=== PATIENT | male | born 1955 | race Caucasian/White ===

== ENCOUNTER → 2024-02-15 22:00 | Outpatient (REF) | payer OTHER, SELFPAY | LOC: DHSLP 22:00 | PROVIDERS: ATTENDING PHYSICIAN Internal Medicine | DX: G47.33 Obstructive sleep apnea (adult) (pediatric) (principal) | CPT/HCPCS: 95806 ==

== ENCOUNTER → 2024-11-27 16:14 | Outpatient (REF) | payer OTHER, SELFPAY | LOC: RAD 16:14 | PROVIDERS: ATTENDING PHYSICIAN Internal Medicine | DX: R05.1 Acute cough (principal) | CPT/HCPCS: 71046 ==

== ENCOUNTER 2025-04-12 14:12 | Inpatient (IN) | payer OTHER, SELFPAY ==
[2025-04-10] VITALS (10 sets, daily range): BP systolic 110–142; BP diastolic 61–91; PULSE 79–85; BMI 29.0
[2025-04-10 15:40] LABS: Hematocrit 44.1 % (39.0-52.0); Hemoglobin 14.9 g/dL (13.0-18.0); Mean Corp Hgb Conc. 33.8 g/dL (33.0-37.0); Mean Corpuscular Volume 88.6 fL (80.0-94.0); Nucleated Red Blood Cells % 0 % (-); Platelet Count 219 10^3/uL (130-400); Red Cell Dist. Width 13.2 % (11.5-14.5)
[2025-04-10 15:54] LABS: ALT (SGPT) 28 U/L (0-50); AST (SGOT) 22 U/L (17-59); Albumin 4.7 g/dl (3.5-5.0); Alkaline Phosphatase 77 U/L (38-126); Blood Urea Nitrogen 14 mg/dl (9-20); Calcium 9.4 mg/dl (8.4-10.2); Carbon Dioxide 23 mmol/L (22-30); Chloride 106 mmol/L (98-107); Glucose 171 mg/dl (70-99); Potassium 3.7 mmol/L (3.5-5.1); Sodium 139 mmol/L (135-145); Total Protein 7.1 g/dl (6.3-8.2); eGFR > 60.00
[2025-04-10 16:05] LABS: Troponin I < 0.012 ng/ml
--- NOTE | 2025-04-10 20:03 | ED.GENMED ---
History of Present Illness
General
Chief Complaint: Fainting/Passed Out
Source: patient and spouse
Exam Limitations: none
Time Seen by Provider: 04/10/25 19:06
Nursing documentation reviewed up to this point in time: agreed with
History of Present Illness
History of Present Illness:
Patient to ED with increasing episodes of lighheadedness and weakness. states he fell on Fathers day, [place] [facility] [place] without any acute findings. Since then he has had increasing episodes of becoming lighthead
and weak while ambulating with his walker and then slumping to his left side. reports multiple falls. He has a history of prior strokes and is weaker on his left side. He has home PT but reports he is now unsafe at home. He was scheduled
for a appointment with his PCP today and he had an episode at the office. PCP sent him to ED for eval. Denies headache, vision changes, CP/pressure, SOB. No fever/chills recent illness. He reports being able to feel the lightheadedness and weakness
occurring. No episodesof syncope.
Past History
Past History
ED Past Medical History: CVA, HTN, NIDDM and Psychiatric
ED Past Surgical History: Orthopedic
Social History
Tobacco: Non-smoker
Alcohol: None
Drug: None
Personal:
Living: with family
Family History
Family History: Other
Review of Systems
Review of Systems
Allergies reviewed?: Yes
All Other Systems: ROS reviewed and negative except as documented in HPI and ROS
Constitutional: Reports fatigue
EENT: Reports no symptoms
Respiratory: Reports no symptoms
Cardiac: Reports no symptoms
ABD/GI: Reports no symptoms
: Reports no symptoms
Musculoskeletal: Reports no symptoms
Skin: Reports no symptoms
Neurological: Reports weakness
Psychiatric: Reports no symptoms
Phy Exam
General Physical Exam
General Presentation: mild distress
General age: appears stated age
General Skin: warm and dry
General Habitus: normal
Cardiovascular Exam
Cardiovascular Exam: regular rate/rhythm and no edema
Pulmonary Exam
Pulmonary Exam: lungs clear and no respiratory distress
Neurological Exam
Neurological Exam: alert and oriented x3
Musculoskeletal Exam
Musculoskeletal Exam: full ROM and neuro vasc intact
Skin Exam
Skin Exam: normal color, warm/dry and no rash
Psychiatric Exam
Psychiatric Exam: normal mood/affect
Course
Orders/Labs/Results
Orders:
Orders
04/10/25 15:15
EKG [Electrocardiogram (*1)] Urgent
Reason for Study: Syncope
04/10/25 15:16
EKG- Treatment ONCE
04/10/25 15:17
Cardiac Monitoring- Treatment ONCE
IV Insert/Care/Rem.- Treatment PRN
O2 Therapy [RESP] Urgent
Titrate/Wean O2 to maintain O2 sat greater than (%): 90
Special Instructions: Maintain sats >/=90%
Pulse Ox/spot Check [RESP] Urgent
Quantity: 1
Special Instructions: ON ROOM AIR
04/10/25 15:25
CT Head W/o Iv Contrast Urgent
Comment:
Reason For Exam: multiple syncopal episodes/thinners
04/10/25 15:30
Complete Blood Count/With Diff Urgent
Comprehensive Metabolic Panel Urgent
Troponin I Urgent
04/10/25 20:02
Orthostatic VS- Treatment ONCE
04/10/25 22:05
Urinalysis Reflex To Culture Urgent
Date Specimen was Collected: 04/10/25
Time Specimen was Collected: 22:04
Abnormal Lab Results
04/10/25 04/10/25
15:30 22:05
Absolute Monos (auto) 0.7 H 10^3/uL
(0.1-0.6)
Eosinophils % 6.1 H %
(0-6)
Glucose 171 H mg/dl
(70-99)
Urine Glucose 4+ A
(Negative)
04/10/25 15:30
04/10/25 15:30
Vital Signs
Initial and Last Documented VS:
Initial Vital Signs
Temp Pulse Resp BP Pulse Ox
98.2 F 75 18 114/61 99
04/10/25 15:21 04/10/25 15:21 04/10/25 15:21 04/10/25 15:21 04/10/25 15:21
Last Documented Vital Signs
Temp Pulse Resp BP Pulse Ox
98.2 F 85 19 128/83 93
04/10/25 15:21 04/10/25 23:30 04/10/25 23:30 04/10/25 23:00 04/10/25 23:30
*Radiology
Radiology exam reviewed: radiology read reviewed
*Pulse Oximetry
SaO2: 96
Oxygen Mode of Delivery: Room air
Patient hypoxic: no
*Critical Care Note
Total Time (30-74mins, 75-104mins- exclusive of procedures): Not Applicable
Update Note
Update Note:
Patient to ED for weakness and frequent falls. Reports intermittent episodes of feeling suddenly lightheaded and then slumps toward the left and falls. HE was sent to ED today after episode occurred at PCP office. Weakness has been wosening for
the past month. Labs today stable. CT of head with chronic findings, no acute findings. reports that he is unsafe at home due to the increased weakness and frequent falls, feels he will need a rehab facility. WIll admit to hospitalist for
his weakness and falls. Will request case management consult to address spouses concerns.
ED Attending Note
-
Portions of this chart may have been created with voice recognition software.� Occasional wrong word or��sound alike� substitutions may have occurred due to the inherent limitations of voice recognition software.
Discharge Plan
Departure
Patient Disposition: Admit
Date of Disposition: 04/10/25
Time of Disposition: 23:33
Presentation/result/management discussed w/ accepting MD/DO: Hospitalist
Patient with high blood pressure during this ER visit?: No
Condition: Fair
Covid-19: Not Applicable
Discharge Problem:
Weakness, Frequent falls
Prescriptions:
No Action
lisinopril 20 MG tablet
20 mg PO DAILY
vitamin B complex 1 TAB tablet
1 tab PO DAILY
multivitamin with folic acid [Tab-A-Alison] 1 TABLET tablet
1 tab PO DAILY
atorvastatin 80 mg Tablet
80 mg PO DAILY
gabapentin 300 mg Capsule
300 mg PO HS
escitalopram oxalate 20 mg Tablet
20 mg PO DAILY
Patient Comments:
04/10/2025, spouse is unsure if pt. takes this med. in the morning or in the evening.
aripiprazole 2 mg Tablet
2 mg PO HS
Jardiance 25 mg Tablet
25 mg PO DAILY
lorazepam 0.5 MG tablet
0.5 mg PO BIDPRN PRN (Reason: anxiety)
insulin glargine [Lantus U-100 Insulin] 100 unit/mL Solution
52 unit SC HS
loperamide [Imodium] 2 mg Capsule
4 mg PO DAILYPRN PRN (Reason: diarrhea)
aspirin 81 mg Tablet,Delayed Release (Dr/Ec)
81 mg PO DAILY
pantoprazole 40 mg Tablet,Delayed Release (Dr/Ec)
40 mg PO DAILY
buspirone 10 mg tablet
20 mg PO BID
hydrocortisone 2.5 % cream
1 applic TOPICAL DAILY
verapamil 240 mg capsule,ext rel. pellets 24 hr
240 mg PO DAILY
insulin aspart U-100 [Novolog FlexPen U-100 Insulin] 100 unit/mL (3 mL) insulin pen
7 - 15 sliding scale dose SC DIRECTED
Patient Comments:
04/10/2025, pt. uses this med. on a sliding scale before meals but is unsure of what that scale is.
ciclopirox 1 % shampoo
1 ea TOPICAL MOWEFRSA
levomefolate calcium 15 mg Tablet
15 mg PO HS
Patient Comments:
04/10/2025, spouse is unsure if pt. takes this med. in the morning or in the evening.
Mounjaro 2.5 mg/0.5 mL Pen Injector
2.5 mg SC MO
Rx Instructions:
for 4 weeks
Referrals:
Romi Nichole NP [Family Provider, Internal Medicine]
Interventions
Interventions:
*Risk Screen - Suicide Last Done: 04/10/25 15:21
*General Assessment Last Done: 04/10/25 19:01
*Neglect/Abuse Screening Last Done: 04/10/25 15:21
*ED- Fall Risk Assessment Last Done: 04/10/25 19:01
*ED COVID-19 Vaccine History Last Done: 04/10/25 19:01
ED- Cardiac Assessment Last Done: 04/10/25 22:53
ED- Neurological Assessment Last Done: 04/10/25 22:53
Discharge Date and Time
Print Language: SWISS
[2025-04-10 22:14] LABS: Urine Character Clear (Clear)
[2025-04-11] VITALS (12 sets, daily range): BP systolic 134–172; BP diastolic 73–95; PULSE 93–103; BMI 27.8
--- NOTE | 2025-04-11 00:38 | HPS.HSE ---
Family Physician
-
Family Physician: Romi Nichole
Chief Complaint
-
falls
History of Present Illness
69yo M with PMHx of dementia, HTN, CVA with residual L sided weakness, GERD, DM brought by with frequent falls over past 2 months. As per patient - he has episodes of lightheadedness before the falls without LOC, however his history is limited
2/2 advance dementia. He always leaning towards L when falling.
Medical History
Past Medical History
Past Medical History: Reports Other
Additional Past Medical History:
See HPI
Past Surgical History: Reports Other
Additional Past Surgical History:
See HPI
Social History
Tobacco: Non-smoker
Alcohol: None
Drug: None
Family History
Family History: Not pertinent
Allergies / Home Medications
Allergies reflects when Allergies were last updated in [email or web address].
Home Medications with original date entered in [email or web address]
Allergy/Medication List:
Allergies
Allergy/AdvReac Type Severity Reaction Status Date / Time
Sulfa (Sulfonamide Allergy causes Verified 04/10/25 15:18
Antibiotics) burning on
urination
Home Medications
lisinopril 20 mg tablet 20 mg PO DAILY Blood pressure 11/19/21
multivitamin with folic acid 400 mcg tablet (Tab-A-Alison) 1 tab PO DAILY Supplement 11/19/21
vitamin B complex 1 tab PO DAILY Supplement 11/19/21
aripiprazole 2 mg tablet 2 mg PO HS 04/20/23
atorvastatin 80 mg tablet 80 mg PO DAILY 04/20/23
empagliflozin 25 mg tablet (Jardiance) 25 mg PO DAILY 04/20/23
escitalopram oxalate 20 mg tablet 20 mg PO DAILY 04/20/23
gabapentin 300 mg capsule 300 mg PO HS 04/20/23
lorazepam 0.5 mg tablet 0.5 mg PO BIDPRN PRN anxiety 04/20/23
aspirin 81 mg tablet,delayed release 81 mg PO DAILY 04/10/25
buspirone 10 mg tablet 20 mg PO BID 04/10/25
ciclopirox 1 % shampoo 1 ea topical MOWEFRSA 04/10/25
hydrocortisone 2.5 % topical cream 1 applic topical DAILY apply to face, nose, ears 04/10/25
insulin aspart U-100 100 unit/mL (3 mL) subcutaneous pen (Novolog FlexPen U-100 Insulin aspart) 7 - 15 sliding scale dose SC DIRECTED 04/10/25
insulin glargine 100 unit/mL subcutaneous solution (Lantus U-100 Insulin) 52 unit SC HS 04/10/25
levomefolate calcium 15 mg tablet 15 mg PO HS 04/10/25
loperamide 2 mg capsule 4 mg PO DAILYPRN PRN diarrhea 04/10/25
pantoprazole 40 mg tablet,delayed release 40 mg PO DAILY 04/10/25
tirzepatide 2.5 mg/0.5 mL subcutaneous pen injector (Mounjaro) 2.5 mg SC MO 04/10/25
verapamil 240 mg 24 hr capsule,extended release 240 mg PO DAILY 04/10/25
Review of Systems
-
History Source: Patient
A 12 point ROS was completed and negative except as noted: Yes
Physical Exam
Vital Signs
Vital Signs
Temp Pulse Resp BP Pulse Ox
98.2 F 85 19 128/83 93
04/10/25 15:21 04/10/25 23:30 04/10/25 23:30 04/10/25 23:00 04/10/25 23:30
Physical Exam
General: No Apparent Distress, Comfortable and Conversant
HEENT: NormoCephalic, Anicteric and Moist mucous membranes
Respiratory: Clear; No Wheezes or Crackles
Cardiac: S1/S2 and Regular Rhythm; No Murmur
GI: Soft, Non Tender and Non Distended
Genito-urinary: No costovertebral tender
Skin: Warm; No Dry or Rash
Neuro: Awake, Alert, Oriented and AO x 3
Psych: Calm
Laboratory Results
-
04/10/25 15:30
04/10/25 15:30
Laboratory Results
Total Bilirubin 1.2 mg/dl (0.2-1.3) 04/10/25 15:30
AST 22 U/L (17-59) 04/10/25 15:30
ALT 28 U/L (0-50) 04/10/25 15:30
Alkaline Phosphatase 77 U/L (38-126) 04/10/25 15:30
Troponin I < 0.012 ng/ml 04/10/25 15:30
Data Reviewed
-
Lab Data: Labs Reviewed by me
Impression/Plan
-
A/P:
#Frequentfalls 2/2 Hx of CVA with L residual weakness vs other causes
#Moderate to large chronic transcortical infarct in the inferolateral left frontal lobe and left insular cortex
#Small to moderate-sized chronic transcortical infarct in the right parietal lobe precentral gyrus
#Small chronic white matter infarct in the right parietal lobe
#Small chronic transcortical infarct in the posterior right parietal lobe.
cont ASA, statin
Telemetry
Neuro consult
Check TSH, Vitd, B12, folate
PT/OT and CM for possible STR
Orthostatic VS
telemetry
#Essential HTN
#HLD
#GERD
#Diarrhea
cont home meds
#DM type 2 with neuropathy
Insulin SS, DM diet, accuchecks
cont Jardiance
Check HgbA1c
DVT ppx Lovenox
Full code
I have spent at least 79min admitting the patient
--- NOTE | 2025-04-11 03:11 | PTCARENOTE ---
Patient arrived to unit from ED via stretcher. Patient pulled over from stretcher to bed in room 337-2 on . at bedside during admission questions. Pt. has hx of dementia, able to answer all questions appropriately. No c/o of pain.
sleeping in family room on unit for the night. Oriented to unit. Call jackson within reach. Bed alarm on bed. Plan of care ongoing.
[2025-04-11 08:01] LABS: Glucose - Point of Care 124 mg/dl (70-99)
[2025-04-11] MEDS: LIPITOR 80 MG PO (08:50)
[2025-04-11] MEDS: BUSPAR 20 MG PO ×2 (08:50→20:12)
[2025-04-11] MEDS: PROTONIX 40 MG PO (08:50)
[2025-04-11] MEDS: ZESTRIL 20 MG PO (08:51)
[2025-04-11] MEDS: LEXAPRO 20 MG PO (08:51)
[2025-04-11] MEDS: FARXIGA 10 MG PO (08:52)
[2025-04-11] MEDS: THERAGRAN 1 TABLET PO (08:52)
[2025-04-11] MEDS: ASPIR LOW (ENTERIC COATED) 81 MG PO (08:52)
[2025-04-11] MEDS: NOVOLOG FLEXPEN-MODERATE RESISTANCE SC (09:24)
[2025-04-11] MEDS: HYDROCORTISONE 2.5% CREAM 1 APPLIC TOPICAL (09:24)
--- NOTE | 2025-04-11 09:56 | CON.NEURO4 ---
Addendum entered and electronically signed by Wali Gallegos MD 04/11/25 12:49:
Studies reviewed.
I have personally examined the patient. I reviewed and agree with the CONNIE SCRATCHER's Note.
My addenda:
Awake, alert, interactive. No acute distress.
Speech intact.
Follows 2-step requests w/o difficulty. No tremor.
Extra-ocular movements grossly intact.
Facial movements full and symmetric. Hearing intact to normal conversational volume.
Normal UE movements bilaterally.
Neck: full ROM.
Chest: no dyspnea
Heart: no JVD
Ext: (-) Clubbing, (-) Cyanosis, (-) Edema
IMPRESSIONS/RECOMMENDATIONS:
Abrupt onset of worsening gait
Patient has a longstanding history of stroke, epilepsy, and severe dementia. After his presentation to this hospital's emergency department, he was found to have orthostatic hypotension
provide abdominal binder
Continue current therapies
Continue rehabilitation evaluations and treatment
Check MRI of brain for completeness
D/W patient / family
Will continue to follow patient.
Original Note:
Consultation - Neurology 4
-
CONSULTING PHYSICIAN: Wali Gallegos MD
REFERRING PHYSICIAN: Hospitalists/Dr. Heart
DICTATED BY: MARGIE Jeong
DATE/TIME OF REQUEST: 04/11/25
DATE/TIME OF CONSULTATION: 04/11/25
Reason for Consultation: Frequent falls, dizziness
History of Present Illness:
This is a 69-year-old male who has presented to the hospital with report of dizziness and frequent falls. Patient is known to our Neurology service as an inpatient and outpatient for a history of stroke, seizures, and cognitive impairment.
From outpatient evaluation by MARGIE Moon on 04/29/2023:
'Patient seen in the office today. Since his last visit with Dr. Steiner he was admitted to the hospital with seizure activity on 04/20/2023. reports on 04/20/2023 patient was sleeping in his bed, he was sleeping in as he had not gotten much sleep
the night before; when the cat started acting funny and sat in front of his bedroom door. When his went to enter the bedroom she found him sprawled on the bed, unresponsive verbally, eyes open and staring off straight ahead, he was pale. He was
drooling out of right side of his mouth right. He also had right arm shaking and labored breathing. She checked his blood sugar was 115. She then called 911. On arrival to the ER was confused. He did bite his tongue. His reported that the
episode lasted about 5 minutes. In the ER there was some left arm shaking, but there was no change in mental status. He denied any headache, dizziness, vision changes, speech or swallowing difficulty, numbness, weakness, chest pain, palpitations or
shortness of breath. He has no family history of seizure. He has no history of seizure himself. He had no recent fever or illness. No previous episodes. He does take aspirin 81 mg. He does have a history of stroke in November 2021; right frontal
infarct and chronic left frontal infarct. He completed 21 days of dual antiplatelet therapy. Has been on high intensity statin. He has been following with Dr. Steiner since his stroke. He was having memory issues. He had been on donepezil 5 mg and
has been tolerating well in January this was increased to 10 mg at night. He also has been taking Abilify. It was felt that either the combination of donepezil/Abilify may be contributing to the seizure activity as well as history of stroke. Donepezil
was discontinued. He has continued on Abilify. EEG was unremarkable for seizure and MRI of the brain did not show new stroke. He was not started on AED. He has had no seizure activity since discharge from the hospital.'
From outpatient treatment plan by Dr. Gallegos at his last office visit on 01/15/25:
'1.�History of right MCA stroke�Notes: previous right MCA ischemic infarction occurred in context of hyperglycemia and DKA.Most likely atheroembolic given history hypertension, hyperlipidemia, diabetes.Had cardiac monitoring previously has not found
any atrial fibrillation.Continue aspirin 81 mg daily and Atorvastatin 80 mg daily, LDL in the hospital was 77��
2.�Cognitive impairment�Start Memantine HCl Tablet, 10 MG, 1 tablet, Orally, twice daily, 30 days, 30, Refills 3, Notes to Pharmacist: Take 5 mg nightly for 1 week followed by 5 mg twice daily for 1 week followed by 5 mg daily and 10 mg nightly for
1 week followed by 10 mg twice daily Notes: Most likely vascular memory loss based due to sizeable left MCA chronic infarction and the more recent right MCA infarct as well.NeuroTrax 95>>92.4, results [email or web address] [email or web address] Care
[phone]��clinical Notes:no longer on Donepezil 10 mg at night, presented with seizure to the ER after increase and has since been discontinued Start Namenda 5 mg nightly for 1 week followed by 5 mg twice daily for 1 week followed by 5 mg daily
and 10 mg nightly for 1 week followed by 10 mg twice daily, watch for side effects such as nausea, vomiting, diarrhea and agitation��
3.�Seizure�Notes:24 hour EEG unremarkable. Topiramate discontinued, no seizures. Would use Acetaminophen (Tylenol) as needed for headache. Use Nayzilam (Midazolam) nasal spray in one nostril at start of flurry seizures. Repeat after 10 minutes in
other nostril if not seizures not stopped.Watch for sleepiness with use of Nayzilam.��Clinical Notes: -presented to the ER April 2023 with seizure activity-EEG was neg for seizure activity-MRI negative for additional acute stroke-Abilify dosage has
been decreased.'
Patient's at bedside reports that on 03/17/25 he reported feeling light-headed and then proceeded to lean to the left and fall to the ground. He was evaluated at [facility] following this event and she reports the workup was unremarkable. Since then,
she notes that he has had the same thing happen about 5 additional times. Sometimes she has been able to get a chair under him to prevent him from falling. She has been checking his blood sugar and blood pressure when this happens and his blood
sugar typically is running in the 120's and his blood pressure is usually around 115/75. He was at an appointment with his PCP yesterday (04/10/25) and he fell in the office, prompting them to send him to the ER for evaluation. CT head was obtained on
arrival in the ER and is negative for any acute abnormalities. Orthostatic vital signs were obtained and are positive. Patient currently reports feeling at his baseline. He denies any headache, dizziness, vision changes, speech/swallowing
difficulty, numbness, and focal weakness. He never ended up starting memantine for memory stabilization. He is still taking aspirin 81mg daily.
Past Medical History: Chronic large left frontal lobe and right parietal lobe ischemic infarcts, cognitive impairment, HTN, HLD, IDDM, cognitive impairment, restless legs, depression, anxiety, asthma as a child, DKA
Surgical History: L wrist ganglion cyst removal.
Family History: Reviewed and noncontributory.
Social History: Denies tobacco and illicit drug use. Former heavy alcohol usage.
Allergies: Sulfa antibiotics.
Home Medications: See below.
Review of Symptoms:
Patient denies any fever, headache, chest pain, shortness of breath, GI or symptoms.
Physical Exam:
The patient is afebrile, abdomen is nondistended, breathing is unlabored, skin is warm and dry, abrasion on left knee with DSD.
NIH Stroke Scale:
I performed the NIH stroke scale on the patient on 04/11/25 at 1000. The patient scored 0 points on the NIH stroke scale assessment, which were assigned as follows: See below.
Neurologic Examination:
The patient is awake, alert and oriented x 3. Next holiday: , corrected to . Most recent holiday: unsure. Moderate difficulty with two-step requests. There is no aphasia or dysarthria. On cranial nerve assessment, pupils are 3
mm bilateral, round and reactive to light and accommodation. Visual snow are full. Extraocular movements are intact. Facial sensations are intact and bilaterally symmetrical, there is no facial asymmetry. Hearing is intact bilaterally to normal
conversation volume. Tongue palate and uvula are midline. Sternocleidomastoid strengths are full bilaterally. Motor strengths are 5/5 bilateral upper and lower extremities on medical research Cruger scale. There is no drift or involuntary movement
noted. Deep tendon reflexes are 2+ bilateral upper and lower extremities and Babinski is absent bilaterally. There was no extinction noted on double simultaneous stimulation. Coordination is intact by finger to nose bilaterally.
Lab Results: See below.
Neuro Imaging:
1. CT Head 04/10/25: No CT evidence for acute intracranial hemorrhage or transcortical infarct. Moderate to large chronic transcortical infarct in the inferolateral left frontal lobe and left insular cortex. Small to moderate-sized chronic
transcortical infarct in the right parietal lobe precentral gyrus. Small chronic white matter infarct in the right parietal lobe. Small chronic transcortical infarct in the posterior right parietal lobe. Mild diffuse global cerebral and cerebellar
volume loss.
Differentials for the patient's presentation include:
1. Orthostatic hypotension likely producing frequent light-headedness and falls.
2. Low concern for recent stroke, but possible.
Patient has the following risk factors for their symptoms: HTN, neuropathy, warmer weather
Recommendations:
-Wear an abdominal when out of bed, encourage hydration, and slow position changes to avoid blood pressure dropping.
-Continue aspirin 81mg daily.
-MRI brain noncontrast ordered to rule out a new stroke contributing to symptoms.
-Physical therapy evaluation.
-Will follow pending results.
Discussed patient care with: Dr. Gallegos, the patient, patient's
Vital Signs and Labs
-
Vital Signs and Labs:
Vital Signs
Temp Pulse Resp BP Pulse Ox
97.9 F 93 17 165/82 97
04/11/25 11:13 04/11/25 11:13 04/11/25 11:13 04/11/25 11:13 04/11/25 11:13
Lab Results
04/10/25 15:30
04/10/25 15:30
Sodium 139 mmol/L (135-145) 04/10/25 15:30
Potassium 3.7 mmol/L (3.5-5.1) 04/10/25 15:30
BUN 14 mg/dl (9-20) 04/10/25 15:30
Glucose 171 mg/dl (70-99) H 04/10/25 15:30
Calcium 9.4 mg/dl (8.4-10.2) 04/10/25 15:30
Medications
-
Active Medications
Generic Name Dose Route Start Last Admin
Trade Name Freq PRN Reason Stop Dose Admin
Acetaminophen 650 mg 04/11/25 02:07
Acetaminophen 325 Mg Tablet PO 05/09/25 02:06
Q4HPRN PRN
mild pain/GARCIA/temp> 100.4F
Aripiprazole 2 mg 04/11/25 22:00
Aripiprazole 2 Mg Tablet PO 05/09/25 21:59
HS NIA
Aspirin 81 mg 04/11/25 08:00 04/11/25 08:52
Aspirin 81 Mg (Enteric Coated) Tablet PO 05/09/25 07:59 81 mg
DAILY NIA Administration
Atorvastatin Calcium 80 mg 04/11/25 08:00 04/11/25 08:50
Atorvastatin (Lipitor) 80 Mg Tablet PO 05/09/25 07:59 80 mg
DAILY NIA Administration
Bisacodyl 10 mg 04/11/25 02:07
Bisacodyl 10 Mg Rectal Suppository RECTAL 05/09/25 02:06
[id number] PRN
constipation
Buspirone HCl 20 mg 04/11/25 08:00 04/11/25 08:50
Buspirone 10 Mg Tablet PO 05/09/25 07:59 20 mg
BID NIA Administration
Dapagliflozin 10 mg 04/11/25 08:00 04/11/25 08:52
Dapagliflozin (Farxiga) 10 Mg Tablet PO 05/09/25 07:59 10 mg
DAILY NIA Administration
Dextrose 12.5 grams 04/11/25 02:07
Dextrose 50% (0.5 Grams/Ml) 50 Ml Syringe IV 05/09/25 02:06
[id number] PRN
hypoglycemia
Protocol
Enoxaparin Sodium 40 mg 04/11/25 18:00
Enoxaparin Sodium 40 Mg/0.4 Ml Syringe SC 05/09/25 17:59
QPM NIA
Escitalopram Oxalate 20 mg 04/11/25 08:00 04/11/25 08:51
Escitalopram 20 Mg Tablet PO 05/09/25 07:59 20 mg
DAILY NIA Administration
Gabapentin 300 mg 04/11/25 22:00
Gabapentin 300 Mg Capsule PO 05/09/25 21:59
HS NIA
Glucagon 1 mg 04/11/25 02:07
Glucagon 1 Mg Vial IM 05/09/25 02:06
PRN PRN
hypoglycemia
Protocol
Hydrocortisone 0 applic 04/11/25 08:00 04/11/25 09:24
Hydrocortisone 2.5% (Cream) Tube TOPICAL 05/09/25 07:59 1 applic
DAILY NIA Administration
Insulin Aspart 0 units 04/11/25 07:30 04/11/25 09:24
Insulin Aspart Moderate Resistance 300 Units/3 Ml Pen.Injctr SC 05/09/25 07:29 Not Given
AC NIA
Protocol
Lisinopril 20 mg 04/11/25 08:00 04/11/25 08:51
Lisinopril 20 Mg Tablet PO 05/09/25 07:59 20 mg
DAILY NIA Administration
Loperamide HCl 4 mg 04/11/25 02:07
Loperamide 2 Mg Capsule PO 05/09/25 02:06
DAILYPRN PRN
diarrhea
Lorazepam 0.5 mg 04/11/25 10:11
Lorazepam 0.5 Mg Tablet PO 05/09/25 10:10
BIDPRN PRN
anxiety
Multivitamins Therapeutic 1 tablet 04/11/25 08:00 04/11/25 08:52
Multivitamin Tablet PO 05/09/25 07:59 1 tablet
DAILY NIA Administration
Levomefolate Calcium 0 mg 04/11/25 22:00
15 Mg Tablet Po Hs PO 05/09/25 21:59
HS NIA
Non-Formulary Medication 240 mg 04/11/25 08:00 04/11/25 09:24
Verapamil PO 05/09/25 07:59 Not Given
DAILY NIA
Ondansetron HCl 4 mg 04/11/25 02:07
Ondansetron 4 Mg/2 Ml Vial IV 05/09/25 02:06
Q8HPRN PRN
nausea and vomiting
Pantoprazole Sodium 40 mg 04/11/25 08:00 04/11/25 08:50
Pantoprazole 40 Mg Delayed Release Tablet PO 05/09/25 07:59 40 mg
DAILY NIA Administration
Polyethylene Glycol 17 grams 04/11/25 02:07
Polyethylene Glycol Powder 17 Grams Packet PO 05/09/25 02:06
DAILYPRN PRN
constipation
Senna/Docusate Sodium 1 tablet 04/11/25 02:07
Docusate W/Senna (Denise-Colace) Tablet PO 05/09/25 02:06
BIDPRN PRN
constipation
Sodium Chloride 0 flush 04/11/25 03:00
Sodium Chloride 0.9% (Flush) Syringe IV 05/09/25 02:59
PER PROTOCOL NIA
Home Medications
�Medication �Instructions �Recorded
lisinopril 20 mg tablet 20 mg PO DAILY Blood pressure 11/19/21
multivitamin with folic acid 400 1 tab PO DAILY Supplement 11/19/21
mcg tablet (Tab-A-Alison)
vitamin B complex 1 tab PO DAILY Supplement 11/19/21
aripiprazole 2 mg tablet 2 mg PO HS 04/20/23
atorvastatin 80 mg tablet 80 mg PO DAILY 04/20/23
empagliflozin 25 mg tablet 25 mg PO DAILY 04/20/23
(Jardiance)
escitalopram oxalate 20 mg tablet 20 mg PO DAILY 04/20/23
gabapentin 300 mg capsule 300 mg PO HS 04/20/23
lorazepam 0.5 mg tablet 0.5 mg PO BIDPRN PRN anxiety 04/20/23
aspirin 81 mg tablet,delayed 81 mg PO DAILY 04/10/25
release
buspirone 10 mg tablet 20 mg PO BID 04/10/25
ciclopirox 1 % shampoo 1 ea topical MOWEFRSA 04/10/25
hydrocortisone 2.5 % topical cream 1 applic topical DAILY apply to 04/10/25
face, nose, ears
insulin aspart U-100 100 unit/mL 7 - 15 sliding scale dose SC 04/10/25
(3 mL) subcutaneous pen (Novolog DIRECTED
FlexPen U-100 Insulin aspart)
insulin glargine 100 unit/mL 52 unit SC HS 04/10/25
subcutaneous solution (Lantus
U-100 Insulin)
levomefolate calcium 15 mg tablet 15 mg PO HS 04/10/25
loperamide 2 mg capsule 4 mg PO DAILYPRN PRN diarrhea 04/10/25
pantoprazole 40 mg tablet,delayed 40 mg PO DAILY 04/10/25
release
tirzepatide 2.5 mg/0.5 mL 2.5 mg SC MO 04/10/25
subcutaneous pen injector
(Mounjaro)
verapamil 240 mg 24 hr 240 mg PO DAILY 04/10/25
capsule,extended release
[2025-04-11 10:05] LABS: Glycohemoglobin (HgbA1c) 7.1 % (4.0-5.6)
[2025-04-11 12:10] LABS: Glucose - Point of Care 189 mg/dl (70-99)
[2025-04-11] MEDS: NOVOLOG FLEXPEN-MODERATE RESISTANCE 1 UNITS SC ×2 (12:16→17:30)
--- NOTE | 2025-04-11 14:49 | W.PN.UPDATE ---
Update Note
Progress Note Update
Nonbillable note
1. Presyncope -patient is orthostatic with standing systolic blood pressure dropping to 120, unsure if making patient dizzy. Will provide compression stockings. Continue home dose of lisinopril 20 mg daily as without it patient at risk of having
supine hypertension and related complications.
2. Recurrent fall -CT head showing old infarcts and encephalomalacia. Neuro evaluated and family concerned about patient having silent stroke. MRI brain without contrast ordered to rule out any acute/subacute CVAs. On exam no neurological
deficit. PT OT evaluation has been ordered.
Of note patient spouse interested in patient being placed in long term facility for rehab, discussed patient has to meet criteria for need of skilled rehab before insurance approval can be initiated. I have discussed briefly with spouse as
well that in light of patient history of multiple stroke in the past patient may have a slow decline in overall neurological function and may warrant long-term facility based care eventually.
--- NOTE | 2025-04-11 16:14 | CM ---
PT OT indicate VN
LM with no call back
[2025-04-11 16:49] LABS: Glucose - Point of Care 150 mg/dl (70-99)
[2025-04-11 17:13] LABS: Vitamin D, 25-OH*** 33.1 ng/mL (30-80)
[2025-04-11] MEDS: LOVENOX 40 MG SC (17:28)
[2025-04-11 18:02] LABS: Folate > 20.0 ng/ml (2.76-20); Vitamin B12 394 pg/ml (239-931)
[2025-04-11 21:14] LABS: Glucose - Point of Care 190 mg/dl (70-99)
[2025-04-11] MEDS: ABILIFY 2 MG PO (22:05)
[2025-04-11] MEDS: NEURONTIN 300 MG PO (22:05)
[2025-04-12 03:27] VITALS: BP 135/76
[2025-04-12 07:39] LABS: Glucose - Point of Care 194 mg/dl (70-99)
[2025-04-12 08:08] VITALS: BP 136/79
[2025-04-12] MEDS: LIPITOR 80 MG PO (09:28)
[2025-04-12] MEDS: ASPIR LOW (ENTERIC COATED) 81 MG PO (09:28)
[2025-04-12] MEDS: PROTONIX 40 MG PO (09:28)
[2025-04-12] MEDS: FARXIGA 10 MG PO (09:28)
[2025-04-12] MEDS: NON-FORMULARY ITEM 240 MG PO (09:29)
[2025-04-12] MEDS: ZESTRIL 20 MG PO (09:29)
[2025-04-12] MEDS: BUSPAR 20 MG PO (09:29)
[2025-04-12] MEDS: LEXAPRO 20 MG PO (09:29)
[2025-04-12] MEDS: THERAGRAN 1 TABLET PO (09:29)
[2025-04-12] MEDS: NOVOLOG FLEXPEN-MODERATE RESISTANCE 1 UNITS SC ×2 (09:30→12:32)
[2025-04-12] MEDS: HYDROCORTISONE 2.5% CREAM 1 APPLIC TOPICAL (09:30)
[2025-04-12 11:01] VITALS: BP 131/77
[2025-04-12 12:20] LABS: Glucose - Point of Care 152 mg/dl (70-99)
--- NOTE | 2025-04-12 13:33 | W.PN.NEURO.1 ---
Today's Communication / Plan
-
Provide aspirin and clopidogrel for 21 days although the size of the patient's lesion is extremely small and questionably acute
Would replace patient's aspirin and clopidogrel dosing with clopidogrel alone after 21 days
Neuro Assessment/Plan
Assessment
Suspected right frontal to pixel change by diffusion weighted images are not confirmed by ADC map or FLAIR imaging
Abrupt onset of worsening gait
Patient has a longstanding history of stroke, epilepsy, and severe dementia. After his presentation to this hospital's emergency department, he was found to have orthostatic hypotension
Plan
Provide aspirin and clopidogrel for 21 days although the size of the patient's lesion is extremely small and questionably acute
Would replace patient's aspirin and clopidogrel dosing with clopidogrel alone after 21 days
Continue all other medications and therapies
Continue therapies for orthostatic hypotension
We will follow as outpatient
Subjective/Objective
Subjective Data
Date of Service: April 12, 2025
Objective Data
Vital Signs
Temp Pulse Resp BP Pulse Ox
36.5 C 87 15 131/77 99
04/12/25 11:01 04/12/25 11:01 04/12/25 11:01 04/12/25 11:01 04/12/25 11:01
Lab Results
04/10/25 15:30
04/10/25 15:30
Sodium 139 mmol/L (135-145) 04/10/25 15:30
Potassium 3.7 mmol/L (3.5-5.1) 04/10/25 15:30
BUN 14 mg/dl (9-20) 04/10/25 15:30
Glucose 171 mg/dl (70-99) H 04/10/25 15:30
Calcium 9.4 mg/dl (8.4-10.2) 04/10/25 15:30
Vitamin B12 394 pg/ml (239-931) 04/10/25 15:30
Patient Allergies
Sulfa (Sulfonamide Antibiotics) Allergy (Verified 04/10/25 15:18)
causes burning on urination
Data Reviewed
-
MRI Head: Report Reviewed and Image Reviewed
Labs: Report Reviewed
Reviewed with: Physician and Nurse Practioner
Old Records: Summarized
--- NOTE | 2025-04-12 15:37 | CM ---
Alert awake oriented patient who lives with his Rita who lives in a 1 story home with 5 step to enter . He is assisted in all activities of daily living.He was offered VN he requested [facility].Spoke with intake at
[facility] fax number [phone] .His will drive him home.Pt initially was [facility] . Changed to Inpatient as per IMM reviewed signed on chart.
[facility] hx / No SNF history
Pharmacy August
PCP DR Nichole
PLAN Home with [facility] fax number [phone]
# phone [phone]
--- NOTE | 2025-04-12 17:44 | W.PN.HOSP.TC ---
Today's Communication/Plan
-
d/c home hh
Assessment / Plan
Assessment / Plan
MR brain
In the right frontal lobe, punctate focus of increased diffusion-weighted signal and decreased ADC signal, suggesting a small focus of acute to subacute infarction.
Diffuse atrophy.
Focal areas of old infarction appear stable from MRI of April 20, 2023.
#Right frontal lobe punctate acute/subacute infarction
MRI brain as above
already on asa/statin. added plavix for 21 days per neuro recommendation.
#Frequent falls 2/2 Hx of CVA with L residual weakness
#Moderate to large chronic transcortical infarct in the inferolateral left frontal lobe and left insular cortex
#Small to moderate-sized chronic transcortical infarct in the right parietal lobe precentral gyrus
#Small chronic white matter infarct in the right parietal lobe
#Small chronic transcortical infarct in the posterior right parietal lobe.
PT/OT recommended continuation of HH care
Essential HTN
HLD
GERD
Diarrhea
DM type 2 with neuropathy -Insulin SS, DM diet, accuchecks -cont Jardiance
DVT ppx Lovenox
Full code
More than 30 minutes spent in discharge including
Final examination of the patient
Summarizing hospital stay
Instructions for continuing care to all relevant caregivers
Preparation of discharge records, prescriptions, and referral forms
Total time spent (in minutes): 37 mins
Anticipated Discharge: Today
Subjective/Interval History
-
Date of Service: April 12, 2025
no new issues overnight
Objective Data
-
Vital Signs:
Vital Signs
Temp Pulse Resp BP Pulse Ox
97.7 F 87 15 131/77 99
04/12/25 11:01 04/12/25 11:01 04/12/25 11:01 04/12/25 11:01 04/12/25 11:01
I&O
04/11/25 04/12/2504/13/25
06:59 06:59 06:59
Intake Total 120 / 120 450 / 450
Output Total 200 / 200 500 / 500 400 / 400
Balance -80 / -80 -50 / -50 -400 / -400
Review of Systems
-
Respiratory: Reports No Symptoms
Cardiac: Reports No Symptoms
Abdomen/GI: Reports No Symptoms
Physical Exam
-
General: No Apparent Distress and Comfortable
HEENT: Negative Oxygen
Respiratory: Clear to Auscultation
Cardiac: Regular Rhythm and S1/S2; Negative Murmur or Rub
GI: Soft, Nontender, Nondistended and Normal Bowel Sounds
Musculoskeletal: No Edema
Neuro: Awake, Alert, Oriented, No Motor Deficits and Nonfocal/Grossly Intact
Psych: Calm
--- NOTE | 2025-04-13 08:32 | W.DCSUMMARY ---
Discharge Summary
Discharge Data
Date of Admission: 04/11/25
Date of Discharge: 04/12/25
-
Pending Results: No
Hospital Course
Discharging Physician : Dr Kings Montemayor
Disposition : To home
Primary care physician : Dr Romi Nichole
Principal Discharge diagnosis :
Right frontal lobe punctate acute/subacute infarction
Orthostatic hypotension
Chronic Discharge diagnosis :
History of multiple stroke
History of frequent falls
Essential hypertension
Hyperlipidemia
Gastroesophageal reflux disease
Type 2 diabetes mellitus
Hospital Course :
Patient is a 69-year-old male with no mentioned past medical history was brought in by spouse after patient was noted to having recurrent fall and balance issue. Patient have history of multiple strokes over the few years and for few preceding
weeks before ER presentation patient was felt to having worsening balance. In ER patient had a CT head which showed chronic infarct/encephalomalacia. Neurology evaluated patient and follow-up MRI brain was done which showed small right frontal
lobe punctate acute/subacute stroke. This may not explain patient's symptoms although likely patient have overall neurological decline in light of frequent strokes. Patient also was noted to having some orthostatic hypotension although standing
systolic blood pressure were above 100 and less likely contributing the symptoms. Patient spouse was interested on patient being placed in group home facility rehab although physical therapy evaluated and patient had appropriate strength with
disposition recommended for home level care. Patient was discharged home with continuation of home health care. I had discussed briefly with patient's spouse that he no longer and if patient is not able to be taken care of patient will be
appropriate for long-term care facility placement.
Important imaging findings :
None
Procedure findings :
None
Discharge Plan
-
Patient Disposition: Home with Home Care
Discharge Diagnosis/Procedures: Right frontal CVA
Condition: Fair
Diet: Low Cholesterol and 2 Gram Sodium
Activity: As tolerated
Driving Restrictions: As prior to admission
Bathing Restrictions: OK to Shower
Referrals:
Wali Gallegos MD [Active, Neurology]
Romi Nichole NP [Family Provider, Internal Medicine] - in one week
Prescriptions:
New
clopidogrel [Plavix] 75 mg tablet
75 mg PO DAILY Qty: 21 0RF
Rx Instructions:
Take for 3 weeks THEN stop
Continued
lisinopril 20 MG tablet
20 mg PO DAILY
vitamin B complex 1 TAB tablet
1 tab PO DAILY
multivitamin with folic acid [Tab-A-Alison] 1 TABLET tablet
1 tab PO DAILY
atorvastatin 80 mg Tablet
80 mg PO DAILY
gabapentin 300 mg Capsule
300 mg PO HS
escitalopram oxalate 20 mg Tablet
20 mg PO DAILY
Patient Comments:
04/10/2025, spouse is unsure if pt. takes this med. in the morning or in the evening.
aripiprazole 2 mg Tablet
2 mg PO HS
Jardiance 25 mg Tablet
25 mg PO DAILY
lorazepam 0.5 MG tablet
0.5 mg PO BIDPRN PRN (Reason: anxiety)
insulin glargine [Lantus U-100 Insulin] 100 unit/mL Solution
52 unit SC HS
loperamide 2 mg Capsule
4 mg PO DAILYPRN PRN (Reason: diarrhea)
aspirin 81 mg Tablet,Delayed Release (Dr/Ec)
81 mg PO DAILY
pantoprazole 40 mg Tablet,Delayed Release (Dr/Ec)
40 mg PO DAILY
buspirone 10 mg tablet
20 mg PO BID
hydrocortisone 2.5 % cream
1 applic TOPICAL DAILY
verapamil 240 mg capsule,ext rel. pellets 24 hr
240 mg PO DAILY
insulin aspart U-100 [Novolog FlexPen U-100 Insulin] 100 unit/mL (3 mL) insulin pen
7 - 15 sliding scale dose SC DIRECTED
Patient Comments:
04/10/2025, pt. uses this med. on a sliding scale before meals but is unsure of what that scale is.
ciclopirox 1 % shampoo
1 ea TOPICAL MOWEFRSA
levomefolate calcium 15 mg Tablet
15 mg PO HS
Patient Comments:
04/10/2025, spouse is unsure if pt. takes this med. in the morning or in the evening.
Mounjaro 2.5 mg/0.5 mL Pen Injector
2.5 mg SC MO
Rx Instructions:
for 4 weeks
Discharge Orders:
Discharge Patient (As Directed); Ordered 04/12/25
Ordered By: Eileen Royal
Discharge Date and Time
Discharge Date/Time: 04/12/25 15:42
Print Language: ALGERIAN
== END 2025-04-12 15:42 | disposition home health service (06) | DRG 65 ==
LOC: 3 WEST ACU 14:12
PROVIDERS: Nurse Practitioner; Student in an Organized Health Care Education/Training Program; ADMITTING PHYSICIAN Internal Medicine; ATTENDING PHYSICIAN Hospitalist; CONSULT PHYSICIAN Psychiatry & Neurology Neurology; EMERGENCY PHYSICIAN Emergency Medicine; FAMILY PHYSICIAN Internal Medicine
DX: I63.9 Cerebral infarction, unspecified (principal); I69.354 Hemiplegia and hemiparesis following cerebral infarction affecting left non-dominant side; I10 Essential (primary) hypertension; R29.6 Repeated falls; F03.C0 Unspecified dementia, severe, without behavioral disturbance, psychotic disturbance, mood disturbance, and anxiety; E11.40 Type 2 diabetes mellitus with diabetic neuropathy, unspecified; E78.5 Hyperlipidemia, unspecified; I95.1 Orthostatic hypotension; G93.89 Other specified disorders of brain; G40.909 Epilepsy, unspecified, not intractable, without status epilepticus; R41.89 Other symptoms and signs involving cognitive functions and awareness; K21.9 Gastro-esophageal reflux disease without esophagitis; R19.7 Diarrhea, unspecified; Z91.81 History of falling; Z79.84 Long term (current) use of oral hypoglycemic drugs; Z79.82 Long term (current) use of aspirin; Z79.4 Long term (current) use of insulin; Z79.85 Long-term (current) use of injectable non-insulin antidiabetic drugs; Z88.2 Allergy status to sulfonamides
CPT/HCPCS: 70450; 70551; 80053; 81003; 82306; 82607; 82746; 82962; 83036; 84443; 84484; 85025; 93005; 94760; 97162; 97166; 99285

== ENCOUNTER → 2025-05-14 11:02 | Outpatient (REF) | payer OTHER, SELFPAY | LOC: RAD 11:02 | PROVIDERS: ATTENDING PHYSICIAN Nurse Practitioner Adult Health; OTHER PHYSICIAN Psychiatry & Neurology Neurology | DX: R29.898 Other symptoms and signs involving the musculoskeletal system (principal) | CPT/HCPCS: 73564 ==

== ENCOUNTER → 2025-05-18 11:33 | Outpatient (REF) | payer OTHER, SELFPAY | LOC: HWRAD 11:33 | PROVIDERS: ATTENDING PHYSICIAN Registered Nurse Critical Care Medicine; FAMILY PHYSICIAN Internal Medicine | DX: I63.9 Cerebral infarction, unspecified (principal) | CPT/HCPCS: 93880 ==